=== PATIENT | female | born 1980 | race Caucasian/White ===

== ENCOUNTER → 2018-08-01 | Outpatient (CLI) | payer OTHER ==
[~2018-08-01] MED LIST: IBUP800 PO
== END | disposition home or self-care (01) ==
LOC: LAB EV 09:59 → LAB SHORT 09:59
DX: N39.0 Urinary tract infection, site not specified (principal)
CPT/HCPCS: 87077; 87086; 87186

== ENCOUNTER 2019-01-08 05:51 | Day surgery (SDC) | payer OTHER ==
[2019-01-07 12:36] LABS: Hematocrit 36.4 % (33.0-51.0); Hemoglobin 11.9 g/dL (11.5-16.0); Mean Corpuscular HGB 30.1 pg (26.0-34.0); Mean Corpuscular HGB Conc 32.7 g/dL (31.5-36.5); Mean Corpuscular Volume 92 fL (80-100); Mean Platelet Volume 8.9 fL (9.1-12.4); Platelet Count 314 K/mm3 (150-400); RDW Standard Deviation 43.8 fL (35.1-46.3); Red Blood Cell Count 3.95 M/mm3 (3.80-5.20)
[~2019-01-08] VITALS: Ht 165.1 cm; Wt 63.9 kg
[~2019-01-08 05:51] MED LIST changes: +BACL10 PO; +Protopic100 GM TOP; +VALA500 PO
--- NOTE | 2019-01-08 06:51 | NUR ---
Ambulatory in Day Surgery. Surgical site prepped with 2% Chlorhexidine cloth wipe. History, Chart, Medications and Allergies reviewed before start of procedure. Lungs clear T/O to Auscultation. Patient confirms NPO status and agrees with scheduled surgery. Pre-Op teaching done. Pt verbalizes understanding. Patient reports completing Chlorhexadine shower X2 prior to admission to hospital. , Samm, at bedside. Pt reports calling Dr. Gayle's office yesterday due to a "cold". She currently exhibits an intermittent dry cough, but no other symptoms. She is afebrile with clear lungs.
--- NOTE | 2019-01-08 13:20 | NUR ---
FROM OR AT APPROX 1100. LAP ASSIST VAG HYSTERECTOMY. 3 LAP SITES C/D/I. PT AAOX4, ANSWERING QUESTIONS. DENIED PAIN UPON ARRIVAL. DENIED NAUSEA ON ARRIVAL. PT LAYING IN BED, CALL LIGHT IN REACH, SPOUSE IN ROOM.
--- NOTE | 2019-01-08 17:05 | NUR ---
SHIFT SUMMARY S/P LAP HYSTER. 3X LAP SITES SURGICAL DRESSING C/D/I. AAOX4 TOLERATING CLEAR LIQUIDS. TOLERATING PO PAIN MEDS. MEDICATED FOR PAIN OXYCODONE 10MG X1. ZOFRAN X2 FOR NAUSEA. PT HAS NOT GOTTEN UP YET R/T NAUSEA. RAINEY IN PLACE, PATENT AND DRAINING YELLOW. IN ROOM.
--- NOTE | 2019-01-08 17:50 | NUR ---
DANGLE ON SIDE OF BED, PT UP TO STANDING AT EDGE OF BED. MALLORY PAD CHANGED, SCANT DRAINAGE ON PAD.
--- NOTE | 2019-01-09 04:13 | NUR ---
SHIFT SUMMARY: PT POD#1 FOR LAVH. A&O X4. VSS. GAUZE SITES TO ABD CDI. GIVEN IV ZOFRAN AND ORAL PHENERGAN FOR C/O NAUSEA. NO EMESIS. PT GIVEN FENTANYL 50MCG DURING THIS TIME. OTHERWISE, GIVEN 10MG OXY AND TORADOL PER EMAR. PT AMBULATED KWAN X1. EATING SMALL AMOUNT. DRINKING ADEQUATE AMT OF FLUIDS. LR INFUSING @125.
[2019-01-09 05:01] LABS: BASOPHILS ABSOLUTE AUTO 0.01 K/mm3 (0.00-0.23); BASOPHILS PERCENT AUTO 0 % (0-2); EOSINOPHILS ABSOLUTE AUTO 0.08 K/mm3 (0.00-0.68); EOSINOPHILS PERCENT AUTO 1 % (0-6); Hematocrit 29.2 % (33.0-51.0); Hemoglobin 9.5 g/dL (11.5-16.0); IMMATURE GRAN ABSOLUTE AUTO 0.04 K/mm3 (0.00-0.10); IMMATURE GRAN PERCENT AUTO 0 % (0-1); LYMPHOCYTES ABSOLUTE AUTO 1.57 K/mm3 (0.84-5.20); LYMPHOCYTES PERCENT AUTO 14 % (21-46); MONOCYTES ABSOLUTE AUTO 0.76 K/mm3 (0.16-1.47); MONOCYTES PERCENT AUTO 7 % (4-13); Mean Corpuscular HGB 30.4 pg (26.0-34.0); Mean Corpuscular HGB Conc 32.5 g/dL (31.5-36.5); Mean Corpuscular Volume 94 fL (80-100); Mean Platelet Volume 9.2 fL (9.1-12.4); NEUTROPHILS ABSOLUTE AUTO 8.77 K/mm3 (1.96-9.15); NEUTROPHILS PERCENT AUTO 78 % (41-73); Platelet Count 239 K/mm3 (150-400); RDW Coefficient Variation 12.9 % (11.7-14.2); RDW Standard Deviation 44.2 fL (35.1-46.3); Red Blood Cell Count 3.12 M/mm3 (3.80-5.20); White Blood Cell Count 11.23 K/mm3 (4.00-11.30)
[2019-01-09] MEDS ORDERED: Percocet 5-3251 EACH PO (14:36)
[2019-01-09] MEDS ORDERED: IBUP800 PO (14:37)
[2019-01-09] MEDS ORDERED: PROM25 PO (14:38)
--- NOTE | 2019-01-09 16:00 | NUR ---
PROVIDED PT WITH DISCHARGE INSTRUCTIONS AND PRINTED MATERIALS, PERIPHERAL IV REMOVE WNL. PT STATES UNDERSTANDING OF INSTRUCTIONS. PHONE PRESCRIPTIONS TO PT'S PHARMACY AND PROVIDED SCRIPT FOR NARCOTIC PAIN MEDICATION
== END 2019-01-09 16:49 | disposition home or self-care (01) ==
LOC: ORSCMMR 05:51 → ORD 07:30 → ORSCMMR 07:30 → SURS 11:02 → ORSCMMR 01-09 16:49 → SURS 01-09 16:49
PROVIDERS: Obstetrics & Gynecology
PROC: 0U5F4ZZ Destruction of Cul-de-sac, Percutaneous Endoscopic Approach (ICD-10-PCS; principal; 2019-01-08 07:30)
PROC: 0UT7FZZ Resection of Bilateral Fallopian Tubes, Via Natural or Artificial Opening With Percutaneous Endoscopic Assistance (ICD-10-PCS; principal; 2019-01-08 07:30)
PROC: 0UT9FZZ Resection of Uterus, Via Natural or Artificial Opening With Percutaneous Endoscopic Assistance (ICD-10-PCS; principal; 2019-01-08 07:30)
DX: N92.1 Excessive and frequent menstruation with irregular cycle (principal); N94.6 Dysmenorrhea, unspecified; R10.2 Pelvic and perineal pain; N84.0 Polyp of corpus uteri; D25.9 Leiomyoma of uterus, unspecified; N80.3 Endometriosis of pelvic peritoneum
CPT/HCPCS: 36415; 84703; 85025; 85027; 86850; 86900; 86901; 88307; J0330; J0690; J1885; J2250; J2405; J2704; J2710; J2765; J3010; J7120